=== PATIENT | male | born 1965 | race Caucasian/White ===

== ENCOUNTER 2016-09-19 11:43 | Inpatient (IN) | payer OTHER ==
[2016-09-19 17:44] VITALS: BMI 29.9
--- NOTE | 2016-09-19 18:31 | HP ---
CIWA Score - CIWA Score Nausea/Vomitin-Mild Nausea/No Vomiting Muscle Tremors: 4-Moderate,w/Arms Extend Anxiety: 3 Agitation: 4-Moderately Restless Paroxysmal Sweats: 1-Minimal Palms Moist Orientation: 1-Uncertain about Date Tacttile Disturbances: 0-None Auditory Disturbances: 2-Mild Harshness/Frighten Visual Disturbances: 0-None Headache: 3-Moderate CIWA-Ar Total Score: 19 Admission ROS BHS - HPI Chief Complaint: withdrawal sx Allergies/Adverse Reactions: Allergies Allergy/AdvReac Type Severity Reaction Status Date / Time No Known Allergies Allergy Verified 09/19/16 17:42 History of Present Illness: 50 years old male with long history of alcohol nicotine dependence, denies medical issue, has bijpolar ii, longest sobriety 5 months is admitted to detox Exam Limitations: No Limitations - Ebola screening Have you traveled outside of the country in the last 21 days: No Have you had contact with anyone from an Ebola affected area: No Have you been sick,other than usual withdrawal symptoms: No Do you have a fever: No - Review of Systems Constitutional: Chills, Changes in sleep, Weight Stable EENT: reports: No Symptoms Reported Respiratory: reports: No Symptoms reported Cardiac: reports: No Symptoms Reported GI: reports: Nausea, Poor Fluid Intake, Abdominal cramping : reports: No Symptoms Reported Musculoskeletal: reports: No Symptoms Reported Integumentary: reports: No Symptoms Reported Neuro: reports: Tremors Endocrine: reports: No Symptoms Reported Hematology: reports: No Symptoms Reported Psychiatric: reports: Judgement Intact, Anxious, Depressed Other Systems: Reviewed and Negative Patient History - Patient Medical History Hx Anemia: No Hx Asthma: No Hx Chronic Obstructive Pulmonary Disease (COPD): No Hx Cancer: No Hx Cardiac Disorders: No Hx Congestive Heart Failure: No Hx Hypertension: No Hx Hypercholesterolemia: No Hx Pacemaker: No HX Cerebrovascular Accident: No Hx Seizures: No Hx Dementia: No Hx Diabetes: No Hx Gastrointestinal Disorders: No Hx Liver Disease: No Hx Genitourinary Disorders: No Hx Sexually Transmitted Disorders: No Hx Renal Disease (ESRD): No Hx Thyroid Disease: No Hx Human Immunodeficiency Virus (HIV): No (last 05/21) Hx Hepatitis C: No Hx Depression: No Hx Suicide Attempt: Yes (jump off from roof a month ago) Hx Bipolar Disorder: Yes Hx Schizophrenia: No - Patient Surgical History Past Surgical History: No - PPD History Previous Implant?: Yes Documented Results: Negative w/o proof Implanted On Prior R Admission?: Yes Date: 07/18/16 PPD to be Administered?: Yes - Smoking Cessation Smoking history: Current every day smoker Have you smoked in the past 12 months: Yes Aproximately how many cigarettes per day: 20 Cigars Per Day: 0 Hx Chewing Tobacco Use: No Initiated information on smoking cessation: Yes 'Breaking Loose' booklet given: 09/19/16 - Substance & Tx. History Hx Alcohol Use: Yes Hx Substance Use: Yes Substance Use Type: Alcohol, Cocaine, Marijuana Hx Substance Use Treatment: Yes - Substances Abused Alcohol Route: Oral Frequency: Daily Amount used: 3 PINTS RUM Age of first use: 19 Date of Last Use: 09/18/16 Cocaine Route: Inhalation Frequency: Daily Amount used: $100 Age of first use: 19 Date of Last Use: 09/18/16 Marijuana/Hashish Route: Smoking Frequency: Daily Amount used: 3-4 BAGS Age of first use: 19 Date of Last Use: 09/16/16 Family Disease History - Family Disease History Family History: Denies Admission Physical Exam [facility] - Vital Signs Vital Signs: Vital Signs - 24 hr 09/19/16 17:41 Temperature 97.4 F L Pulse Rate 97 H Respiratory 20 Rate Blood Pressure 103/66 - Physical General Appearance: Yes: Appropriately Dressed, Moderate Distress, Tremorous, Irritable, Sweating, Anxious HEENTM: Yes: Hearing grossly Normal, Normal ENT Inspection, Normocephalic, Normal Voice Respiratory: Yes: Chest Non-Tender, Lungs Clear, Normal Breath Sounds, No Respiratory Distress, No Accessory Muscle Use Neck: Yes: Supple, Trachea in good position Breast: Yes: Breasts Symetrical Cardiology: Yes: Regular Rhythm, Regular Rate, S1, S2 Abdominal: Yes: Non Tender, Soft Genitourinary: Yes: Within Normal Limits Back: Yes: Normal Inspection Musculoskeletal: Yes: full range of Motion, Gait Steady Extremities: Yes: Normal Range of Motion, Non-Tender, Tremors Neurological: Yes: Alert, Motor Strength 5/5, Normal Response, Depressed Affect Integumentary: Yes: Warm, Clammy Lymphatic: Yes: Within Normal Limits - Diagnostic (1) Alcohol dependence with uncomplicated withdrawal Current Visit: Yes Status: Acute (2) Nicotine dependence Current Visit: Yes Status: Acute Qualifiers: Nicotine product type: cigarettes Substance use status: in withdrawal Qualified Code(s): F17.213 - Nicotine dependence, cigarettes, with withdrawal (3) Bipolar II disorder Current Visit: Yes Status: Suspected Comment: depradha (4) Dietary counseling Current Visit: Yes Status: Chronic Comment: eat beef and pork only Cleared for Admission S - Detox or Rehab [facility] Level of Care: Medically Managed Detox Regimen/Protocol: Librium S Breath Alcohol Content Breath Alcohol Content: 0 Urine Drug Screen - Results Drug Screen Negative: No Urine Drug Screen Results: THC-Marijuana, AMISHA-Cocaine
[2016-09-19] MEDS ORDERED: guaiFENesin/D-METHORPHAN HB 10 ML UNIT-DOSE CUPS PO PRN (18:32)
[2016-09-19] MEDS ORDERED: NICOTINE POLACRILEX 2 MG GUM BC PRN (18:32)
[2016-09-19] MEDS ORDERED: MENTHOL/PHENOL 1 EACH UD MM PRN (18:32)
[2016-09-19] MEDS ORDERED: chlordiazePOXIDE HCL 25 MG CAPSULE PO PRN (18:32)
[2016-09-19] MEDS ORDERED: MAG HYDROX/AL HYDROX/SIMETH 30 ML UNIT-DOSE CUP PO PRN (18:32)
[2016-09-19] MEDS ORDERED: diphenhydrAMINE HCL 50 MG CAPSULE PO PRN (18:32)
[2016-09-19] MEDS ORDERED: P-EPHED 60MG/TRIPROLIDI 2.5MG TABLET PO PRN (18:32)
[2016-09-19] MEDS ORDERED: MAGNESIUM CITRATE 300 ML BOTTLE PO PRN (18:32)
[2016-09-19] MEDS ORDERED: LOPERAMIDE HCL 2 MG CAPSULE PO PRN (18:32)
[2016-09-19] MEDS ORDERED: IBUPROFEN 400 MG TABLET (FP) PO PRN (18:32)
[2016-09-19] MEDS ORDERED: MAGNESIUM HYDROX 2400MG/30ML ORAL SUSPENSION 30 ML CUP PO PRN (18:32)
[2016-09-19] MEDS ORDERED: hydrOXYzine PAMOATE 50 MG CAPSULE (FP) PO PRN (18:32)
[2016-09-19] MEDS ORDERED: ACETAMINOPHEN 325 MG TABLET (FP) PO PRN (18:32)
[2016-09-19] MEDS ORDERED: chlordiazePOXIDE HCL 25 MG CAPSULE PO ONE (18:45)
[2016-09-19] MEDS: chlordiazePOXIDE HCL 25 MG CAPSULE PO SCH (22:46)
[2016-09-19] MEDS: THIAMINE HCL 100 MG TABLET (FP) PO SCH (22:47)
[2016-09-20] MEDS: chlordiazePOXIDE HCL 25 MG CAPSULE PO SCH ×4 (06:01→22:42)
[2016-09-20 10:07] LABS: MCH 30.2 pg (25.7-33.7); MCHC 33.4 g/dl (32.0-35.9); MEAN CELL VOLUME 90.5 fl (80-96); PLATELET COUNT 259 K/MM3 (134-434); RDW 12.9 % (11.9-15.9); WHITE BLOOD COUNT 6.1 K/mm3 (4.0-10.0)
[2016-09-20] MEDS: PRENATAL VITAMINS W/ FOLIC ACID TABLET (FP) PO SCH (10:30)
[2016-09-20] MEDS: NICOTINE 21 MG/24 HOURS TOPICAL PATCH TD SCH (10:30)
[2016-09-20 10:46] LABS: ALBUMIN 4.1 g/dl (3.4-5.0); ALK PHOS 70 U/L (45-117); ANION GAP 10 (8-16); BILIRUBIN,TOTAL 0.9 mg/dL (0.2-1.0); CALCIUM 8.8 mg/dL (8.5-10.1); CO2 26 mmol/L (21-32); CREATININE 1.1 mg/dL (0.7-1.3); GLUCOSE,RANDOM 105 mg/dL (74-106); SGOT/AST 26 U/L (15-37); SGPT/ALT 26 U/L (12-78); TOT PROT 7.3 g/dl (6.4-8.2)
--- NOTE | 2016-09-20 10:58 | PN ---
[facility] CIWA - CIWA Score Nausea/Vomitin-No Nausea/No Vomiting Muscle Tremors: 4-Moderate,w/Arms Extend Anxiety: 4-Mod. Anxious/Guarded Agitation: 4-Moderately Restless Paroxysmal Sweats: 1-Minimal Palms Moist Orientation: 0-Oriented Tacttile Disturbances: 3-Moderate Itch/Numb/Burn Auditory Disturbances: 0-None Visual Disturbances: 0-None Headache: 0-None Present CIWA-Ar Total Score: 16 BHS Progress Note (SOAP) Subjective: ANXIETY,SWEATS,FATIGUE. Objective: 09/20/16 10:57 Vital Signs Temperature 97.4 F L 09/20/16 10:10 Pulse Rate 106 H 09/20/16 10:10 Respiratory Rate 18 09/20/16 10:10 Blood Pressure 107/75 09/20/16 10:10 O2 Sat by Pulse Oximetry (%) Laboratory Last Values WBC 6.1 K/mm3 (4.0-10.0) D 09/20/16 06:00 RBC 4.54 M/mm3 (4.00-5.60) 09/20/16 06:00 Hgb 13.7 GM/dL (11.7-16.9) 09/20/16 06:00 Hct 41.1 % (35.4-49) 09/20/16 06:00 MCV 90.5 fl (80-96) 09/20/16 06:00 MCHC 33.4 g/dl (32.0-35.9) 09/20/16 06:00 RDW 12.9 % (11.9-15.9) 09/20/16 06:00 Plt Count 259 K/MM3 (134-434) 09/20/16 06:00 MPV 7.0 fl (7.5-11.1) L 09/20/16 06:00 Sodium 140 mmol/L (136-145) 09/20/16 06:00 Potassium 4.5 mmol/L (3.5-5.1) 09/20/16 06:00 Chloride 104 mmol/L (98-107) 09/20/16 06:00 Carbon Dioxide 26 mmol/L (21-32) 09/20/16 06:00 Anion Gap 10 (8-16) 09/20/16 06:00 BUN 19 mg/dL (7-18) H D 09/20/16 06:00 Creatinine 1.1 mg/dL (0.7-1.3) 09/20/16 06:00 Creat Clearance w eGFR > 60 (>60) 09/20/16 06:00 Random Glucose 105 mg/dL (74-106) 09/20/16 06:00 Calcium 8.8 mg/dL (8.5-10.1) 09/20/16 06:00 Total Bilirubin 0.9 mg/dL (0.2-1.0) D 09/20/16 06:00 AST 26 U/L (15-37) D 09/20/16 06:00 ALT 26 U/L (12-78) 09/20/16 06:00 Alkaline Phosphatase 70 U/L (45-117) 09/20/16 06:00 Total Protein 7.3 g/dl (6.4-8.2) 09/20/16 06:00 Albumin 4.1 g/dl (3.4-5.0) 09/20/16 06:00 Assessment: 09/20/16 10:58 WITHDRAWAL SX Plan: CONTINUE DETOX
--- NOTE | 2016-09-20 12:27 | EKG ---
Test Reason : Blood Pressure : / mmHG Vent. Rate : 082 BPM Atrial Rate : 082 BPM P-R Int : 122 ms QRS Dur : 086 ms QT Int : 400 ms P-R-T Axes : 070 054 051 degrees QTc Int : 467 ms NORMAL SINUS RHYTHM NORMAL ECG NO PREVIOUS ECGS AVAILABLE Confirmed by ECTOR AARON, VIKTOR ([id number]) on 09/20/2016 12:27:49 PM Referred By: Confirmed By:VIKTOR BARNEY MD
--- NOTE | 2016-09-20 14:00 | CONSULT ---
[facility] Psychiatric Consult - Data Date of interview: 09/20/16 Admission source: [facility] Identifying data: Readmission to [facility] for this 50 y/o male seeking detox treatment on for alcohol,cocaine and marijuana dependence.Patient is single without children,homeless,unemployed and supported on welfare. Substance Abuse History: - Smoking Cessation. Smoking history: Current every day smoker. Have you smoked in the past 12 months: Yes. Aproximately how many cigarettes per day: 20. Cigars Per Day: 0. Hx Chewing Tobacco Use: No. Initiated information on smoking cessation: Yes. 'Breaking Loose' booklet given : 09/19/16. - Substance & Tx. History. Hx Alcohol Use: Yes. Hx Substance Use : Yes. Substance Use Type: Alcohol, Cocaine, Marijuana. Hx Substance Use Treatment: Yes. - Substances Abused. Alcohol. Route: Oral. Frequency: Daily. Amount used: 3 PINTS RUM. Age of first use: 19. Date of Last Use: . Cocaine. Route: Inhalation. Frequency: Daily. Amount used: $100. Age of first use: 19. Date of Last Use: 09/18/16. Marijuana/Hashish. Route : Smoking. Frequency: Daily. Amount used: 3-4 BAGS. Age of first use: 19. Date of Last Use: 09/16/16. Confirmed by patient. Medical History: Patient endorses good general health. Psychiatric History: Patient admits to a history of two psychiatric hospitalizations at [facility] (2016 + 2017).Diagnosed with Bipolar Disorder.Medication : seroquel 150 mg/hs.Mr Frazier indicates that he did not follow through with recommendations for aftercare.He is now willing to resume his medication.Recent history of suicidal ideation with intent to jump off a roof (did not act on his impulses and sought voluntary hospitalization).Patient reports chronic insomnia. Physical/Sexual Abuse/Trauma History: Patient denies. Additional Comment: Urine Drug Screen Results: THC-Marijuana, AMISHA-Cocaine.Noted. Mental Status Exam - Mental Status Exam Alert and Oriented to: Time, Place, Person Cognitive Function: Good Patient Appearance: Well Groomed Mood: Withdrawn, Anxious Affect: Mood Congruent Patient Behavior: Fatigued, Appropriate, Cooperative Speech Pattern: Clear Voice Loudness: Normal Thought Process: Intact, Goal Oriented Thought Disorder: Not Present Hallucinations: Denies Suicidal Ideation: Denies Homicidal Ideation: Denies Insight/Judgement: Poor Sleep: Poorly, Difficulty falling asleep Appetite: Good Muscle strength/Tone: Normal Gait/Station: Normal Psychiatric Findings - Problem List ([place] 1, 2,3) (1) Alcohol dependence with uncomplicated withdrawal Current Visit: Yes Status: Acute (2) Nicotine dependence Current Visit: Yes Status: Acute Qualifiers: Nicotine product type: cigarettes Substance use status: in withdrawal Qualified Code(s): F17.213 - Nicotine dependence, cigarettes, with withdrawal (3) Cannabis dependence Current Visit: Yes Status: Acute (4) Cocaine dependence Current Visit: Yes Status: Acute Qualifiers: Substance use status: uncomplicated Qualified Code(s): F14.20 - Cocaine dependence, uncomplicated (5) Bipolar II disorder Current Visit: Yes Status: Suspected Comment: depakote (6) Substance induced mood disorder Current Visit: Yes Status: Acute - Initial Treatment Plan Initial Treatment Plan: Psychoeducation.Detoxification in progress.Seroquel 150 mg po hs.Side effects/benefits discussed with the patient.He agrees with this plan of care.Observation.
[2016-09-20 14:48] LABS: URINE APPEARANCE CLEAR; URINE BILIRUBIN NEGATIVE (NEGATIVE); URINE BLOOD NEGATIVE (NEGATIVE); URINE COLOR YELLOW; URINE GLUCOSE (UA) NEGATIVE (NEGATIVE); URINE KETONE NEGATIVE (NEGATIVE); URINE LEUK ESTERASE NEGATIVE (NEGATIVE); URINE NITRITE NEGATIVE (NEGATIVE); URINE PROTEIN NEGATIVE (NEGATIVE); URINE UROBILINOGEN NEGATIVE E.U./dl (0.2-1.0)
[2016-09-20] MEDS: THIAMINE HCL 100 MG TABLET (FP) PO SCH (22:42)
[2016-09-20] MEDS: QUEtiapine FUMARATE 50 MG TABLET PO SCH (22:42)
[2016-09-21] MEDS: chlordiazePOXIDE HCL 25 MG CAPSULE PO SCH ×3 (05:38→17:31)
[2016-09-21] MEDS: NICOTINE 21 MG/24 HOURS TOPICAL PATCH TD SCH (10:31)
[2016-09-21] MEDS: PRENATAL VITAMINS W/ FOLIC ACID TABLET (FP) PO SCH (10:31)
--- NOTE | 2016-09-21 12:25 | PN ---
[facility] CIWA - CIWA Score Nausea/Vomitin-No Nausea/No Vomiting Muscle Tremors: 4-Moderate,w/Arms Extend Anxiety: 4-Mod. Anxious/Guarded Agitation: 4-Moderately Restless Paroxysmal Sweats: 1-Minimal Palms Moist Orientation: 0-Oriented Tacttile Disturbances: 3-Moderate Itch/Numb/Burn Auditory Disturbances: 0-None Visual Disturbances: 0-None Headache: 0-None Present CIWA-Ar Total Score: 16 BHS Progress Note (SOAP) Subjective: ANXIETY,SWEATS,INTERMITTENT SLEEP. Objective: 09/21/16 12:24 Vital Signs Temperature 98.4 F 09/21/16 09:53 Pulse Rate 91 H 09/21/16 09:53 Respiratory Rate 20 09/21/16 09:53 Blood Pressure 112/78 09/21/16 09:53 O2 Sat by Pulse Oximetry (%) Laboratory Last Values WBC 6.1 K/mm3 (4.0-10.0) D 09/20/16 06:00 RBC 4.54 M/mm3 (4.00-5.60) 09/20/16 06:00 Hgb 13.7 GM/dL (11.7-16.9) 09/20/16 06:00 Hct 41.1 % (35.4-49) 09/20/16 06:00 MCV 90.5 fl (80-96) 09/20/16 06:00 MCHC 33.4 g/dl (32.0-35.9) 09/20/16 06:00 RDW 12.9 % (11.9-15.9) 09/20/16 06:00 Plt Count 259 K/MM3 (134-434) 09/20/16 06:00 MPV 7.0 fl (7.5-11.1) L 09/20/16 06:00 Sodium 140 mmol/L (136-145) 09/20/16 06:00 Potassium 4.5 mmol/L (3.5-5.1) 09/20/16 06:00 Chloride 104 mmol/L (98-107) 09/20/16 06:00 Carbon Dioxide 26 mmol/L (21-32) 09/20/16 06:00 Anion Gap 10 (8-16) 09/20/16 06:00 BUN 19 mg/dL (7-18) H D 09/20/16 06:00 Creatinine 1.1 mg/dL (0.7-1.3) 09/20/16 06:00 Creat Clearance w eGFR > 60 (>60) 09/20/16 06:00 Random Glucose 105 mg/dL (74-106) 09/20/16 06:00 Calcium 8.8 mg/dL (8.5-10.1) 09/20/16 06:00 Total Bilirubin 0.9 mg/dL (0.2-1.0) D 09/20/16 06:00 AST 26 U/L (15-37) D 09/20/16 06:00 ALT 26 U/L (12-78) 09/20/16 06:00 Alkaline Phosphatase 70 U/L (45-117) 09/20/16 06:00 Total Protein 7.3 g/dl (6.4-8.2) 09/20/16 06:00 Albumin 4.1 g/dl (3.4-5.0) 09/20/16 06:00 Urine Color Yellow 09/20/16 12:20 Urine Appearance Clear 09/20/16 12:20 Urine pH 6.0 (5.0-8.0) 09/20/16 12:20 Ur Specific [place] 1.025 (1.001-1.035) 09/20/16 12:20 Urine Protein Negative (NEGATIVE) 09/20/16 12:20 Urine Glucose (UA) Negative (NEGATIVE) 09/20/16 12:20 Urine Ketones Negative (NEGATIVE) 09/20/16 12:20 Urine Blood Negative (NEGATIVE) 09/20/16 12:20 Urine Nitrite Negative (NEGATIVE) 09/20/16 12:20 Urine Bilirubin Negative (NEGATIVE) 09/20/16 12:20 Urine Urobilinogen Negative E.U./dl (0.2-1.0) 09/20/16 12:20 Ur Leukocyte Esterase Negative (NEGATIVE) 09/20/16 12:20 RPR Titer Nonreactive (NONREACTIVE) 09/20/16 06:00 Assessment: 09/21/16 12:24 WITHDRAWAL SX Plan: CONTINUE DETOX
--- NOTE | 2016-09-21 19:41 | PN ---
BHS Progress Note Note: + ppd chest x ray continue detox
[2016-09-21] MEDS: QUEtiapine FUMARATE 50 MG TABLET PO SCH (22:38)
[2016-09-21] MEDS: chlordiazePOXIDE 5 MG CAPSULE PO SCH (22:39)
[2016-09-21] MEDS: THIAMINE HCL 100 MG TABLET (FP) PO SCH (22:39)
[2016-09-22] MEDS: chlordiazePOXIDE 5 MG CAPSULE PO SCH ×3 (05:57→17:36)
--- NOTE | 2016-09-22 10:23 | PN ---
BHS Progress Note (SOAP) Subjective: Sweating,interrupted sleep,restless Objective: 09/22/16 10:22 Vital Signs - 8 hr 09/22/16 09/22/16 09/22/16 03:35 06:27 09:36 Temperature 95.8 F L Pulse Rate 79 92 H Respiratory 18 18 20 Rate Blood Pressure 127/82 138/92 Laboratory Tests 09/20/16 09/20/16 09/20/16 06:00 06:00 06:00 WBC 6.1 D RBC 4.54 Hgb 13.7 Hct 41.1 MCV 90.5 MCHC 33.4 RDW 12.9 Plt Count 259 MPV 7.0 L Sodium 140 Potassium 4.5 Chloride 104 Carbon Dioxide 26 Anion Gap 10 BUN 19 H D Creatinine 1.1 Creat Clearance w eGFR > 60 Random Glucose 105 Calcium 8.8 Total Bilirubin 0.9 D AST 26 D ALT 26 Alkaline Phosphatase 70 Total Protein 7.3 Albumin 4.1 Urine Color Urine Appearance Urine pH Ur Specific [place] Urine Protein Urine Glucose (UA) Urine Ketones Urine Blood Urine Nitrite Urine Bilirubin Urine Urobilinogen Ur Leukocyte Esterase RPR Titer Nonreactive 09/20/16 12:20 WBC RBC Hgb Hct MCV MCHC RDW Plt Count MPV Sodium Potassium Chloride Carbon Dioxide Anion Gap BUN Creatinine Creat Clearance w eGFR Random Glucose Calcium Total Bilirubin AST ALT Alkaline Phosphatase Total Protein Albumin Urine Color Yellow Urine Appearance Clear Urine pH 6.0 Ur Specific [place] 1.025 Urine Protein Negative Urine Glucose (UA) Negative Urine Ketones Negative Urine Blood Negative Urine Nitrite Negative Urine Bilirubin Negative Urine Urobilinogen Negative Ur Leukocyte Esterase Negative RPR Titer labs noted Assessment: 09/22/16 10:23 withdrawal sx. Plan: continue detox
[2016-09-22] MEDS: PRENATAL VITAMINS W/ FOLIC ACID TABLET (FP) PO SCH (10:30)
[2016-09-22] MEDS: NICOTINE 21 MG/24 HOURS TOPICAL PATCH TD SCH (10:30)
[2016-09-22] MEDS: QUEtiapine FUMARATE 50 MG TABLET PO SCH (22:41)
[2016-09-22] MEDS: THIAMINE HCL 100 MG TABLET (FP) PO SCH (22:41)
[2016-09-22] MEDS: chlordiazePOXIDE HCL 10 MG CAPSULE PO SCH (22:41)
[2016-09-23] MEDS: chlordiazePOXIDE HCL 10 MG CAPSULE PO SCH ×2 (05:45→10:35)
[2016-09-23 06:25] VITALS: BP 121/85; PULSE 89; TEMP 96.1
[2016-09-23] MEDS: PRENATAL VITAMINS W/ FOLIC ACID TABLET (FP) PO SCH (10:35)
[2016-09-23] MEDS: NICOTINE 21 MG/24 HOURS TOPICAL PATCH TD SCH (10:36)
--- NOTE | 2016-09-23 15:22 | DS ---
[facility] Detox Discharge Summary Admission Date: 09/19/16 Discharge Date: 09/23/16 - History Present History: Alcohol Dependence, Cannabis Dependence, Cocaine Dependence Additional Comments: ADVISED PT. TO FOLLOW-UP WITH ECONOMIC RESEARCH ASSISTANT AFTER DISCHARGE FROM DETOX FOR GENERAL MEDICAL ASSESSMENT. Pertinent Past History: Bi-Polar disorder. - Physical Exam Results Vital Signs: Vital Signs Temperature 96.1 F L 09/23/16 06:25 Pulse Rate 89 09/23/16 06:25 Respiratory Rate 18 09/23/16 06:25 Blood Pressure 121/85 09/23/16 06:25 O2 Sat by Pulse Oximetry (%) Pertinent Admission Physical Exam Findings: Withdrawal Symptoms. Laboratory Last Values WBC 6.1 K/mm3 (4.0-10.0) D 09/20/16 06:00 RBC 4.54 M/mm3 (4.00-5.60) 09/20/16 06:00 Hgb 13.7 GM/dL (11.7-16.9) 09/20/16 06:00 Hct 41.1 % (35.4-49) 09/20/16 06:00 MCV 90.5 fl (80-96) 09/20/16 06:00 MCHC 33.4 g/dl (32.0-35.9) 09/20/16 06:00 RDW 12.9 % (11.9-15.9) 09/20/16 06:00 Plt Count 259 K/MM3 (134-434) 09/20/16 06:00 MPV 7.0 fl (7.5-11.1) L 09/20/16 06:00 Sodium 140 mmol/L (136-145) 09/20/16 06:00 Potassium 4.5 mmol/L (3.5-5.1) 09/20/16 06:00 Chloride 104 mmol/L (98-107) 09/20/16 06:00 Carbon Dioxide 26 mmol/L (21-32) 09/20/16 06:00 Anion Gap 10 (8-16) 09/20/16 06:00 BUN 19 mg/dL (7-18) H D 09/20/16 06:00 Creatinine 1.1 mg/dL (0.7-1.3) 09/20/16 06:00 Creat Clearance w eGFR > 60 (>60) 09/20/16 06:00 Random Glucose 105 mg/dL (74-106) 09/20/16 06:00 Calcium 8.8 mg/dL (8.5-10.1) 09/20/16 06:00 Total Bilirubin 0.9 mg/dL (0.2-1.0) D 09/20/16 06:00 AST 26 U/L (15-37) D 09/20/16 06:00 ALT 26 U/L (12-78) 09/20/16 06:00 Alkaline Phosphatase 70 U/L (45-117) 09/20/16 06:00 Total Protein 7.3 g/dl (6.4-8.2) 09/20/16 06:00 Albumin 4.1 g/dl (3.4-5.0) 09/20/16 06:00 Urine Color Yellow 09/20/16 12:20 Urine Appearance Clear 09/20/16 12:20 Urine pH 6.0 (5.0-8.0) 09/20/16 12:20 Ur Specific [place] 1.025 (1.001-1.035) 09/20/16 12:20 Urine Protein Negative (NEGATIVE) 09/20/16 12:20 Urine Glucose (UA) Negative (NEGATIVE) 09/20/16 12:20 Urine Ketones Negative (NEGATIVE) 09/20/16 12:20 Urine Blood Negative (NEGATIVE) 09/20/16 12:20 Urine Nitrite Negative (NEGATIVE) 09/20/16 12:20 Urine Bilirubin Negative (NEGATIVE) 09/20/16 12:20 Urine Urobilinogen Negative E.U./dl (0.2-1.0) 09/20/16 12:20 Ur Leukocyte Esterase Negative (NEGATIVE) 09/20/16 12:20 RPR Titer Nonreactive (NONREACTIVE) 09/20/16 06:00 LABS NOTED. - Treatment Hospital Course: Detox Protocol Followed, Detoxed Safely, Responded well, Discharged Condition Good, Rehab Referral Accepted Patient has Accepted a Rehab Referral to: YES. - Medication Discharge Medications: Ambulatory Orders Quetiapine Fumarate [Seroquel -] 150 mg PO HS 09/19/16 Quetiapine Fumarate [Seroquel -] 150 mg PO HS #60 tablet 09/20/16 - Diagnosis (1) Alcohol dependence with uncomplicated withdrawal Status: Acute (2) Cannabis dependence Status: Acute (3) Cocaine dependence Status: Acute Qualifiers: Substance use status: uncomplicated Qualified Code(s): F14.20 - Cocaine dependence, uncomplicated (4) Nicotine dependence Status: Chronic Qualifiers: Nicotine product type: cigarettes Substance use status: in withdrawal Qualified Code(s): F17.213 - Nicotine dependence, cigarettes, with withdrawal (5) PPD positive, treated Status: Chronic (6) Bipolar II disorder Status: Suspected - AMA Did Patient Leave Against Medical Advice: No
== END 2016-09-23 10:50 | disposition other institution (70) | DRG 774 ==
LOC: YASAS 11:43 → Y3N 17:51
PROVIDERS: ADMIT Internal Medicine; ATTEND Internal Medicine
PROC: HZ2ZZZZ Detoxification Services for Substance Abuse Treatment (ICD-10-PCS; principal; 2016-09-23)
DX: F10.230 Alcohol dependence with withdrawal, uncomplicated (principal); F14.20 Cocaine dependence, uncomplicated; F12.20 Cannabis dependence, uncomplicated; F17.213 Nicotine dependence, cigarettes, with withdrawal; F19.24 Other psychoactive substance dependence with psychoactive substance-induced mood disorder; F31.81 Bipolar II disorder; R76.11 Nonspecific reaction to tuberculin skin test without active tuberculosis; Z71.3 Dietary counseling and surveillance; Z59.0 Homelessness; Z68.30 Body mass index [BMI] 30.0-30.9, adult
CPT/HCPCS: 36415; 71020-TC; 80053; 81003; 85027; 86593; 93005; 93010

== ENCOUNTER 2016-09-23 11:34 | Inpatient (IN) | payer OTHER ==
[2016-09-23 14:02] VITALS: BMI 31.2
[2016-09-23] MEDS ORDERED: NICOTINE POLACRILEX 2 MG GUM BUC PRN (16:49)
[2016-09-23] MEDS ORDERED: MAG HYDROX/AL HYDROX/SIMETH 30 ML UNIT-DOSE CUP PO PRN (16:49)
[2016-09-23] MEDS ORDERED: IBUPROFEN 400 MG TABLET (FP) PO PRN (16:49)
[2016-09-23] MEDS ORDERED: ACETAMINOPHEN 325 MG TABLET (FP) PO PRN (16:49)
[2016-09-23] MEDS ORDERED: diphenhydrAMINE HCL 50 MG CAPSULE PO PRN (16:49)
[2016-09-23] MEDS ORDERED: MAGNESIUM CITRATE 300 ML BOTTLE PO PRN (16:49)
[2016-09-23] MEDS ORDERED: MENTHOL/PHENOL 1 EACH UD MM PRN (16:49)
[2016-09-23] MEDS ORDERED: hydrOXYzine PAMOATE 50 MG CAPSULE (FP) PO PRN (16:49)
[2016-09-23] MEDS ORDERED: LOPERAMIDE HCL 2 MG CAPSULE PO PRN (16:49)
[2016-09-23] MEDS ORDERED: P-EPHED 60MG/TRIPROLIDI 2.5MG TABLET PO PRN (16:49)
[2016-09-23] MEDS ORDERED: guaiFENesin/D-METHORPHAN HB 10 ML UNIT-DOSE CUPS PO PRN (16:49)
[2016-09-23] MEDS ORDERED: MAGNESIUM HYDROX 2400MG/30ML ORAL SUSPENSION 30 ML CUP PO PRN (16:49)
--- NOTE | 2016-09-23 16:53 | HP ---
[facility] Rehab Assess/Revision - Admission History Admitted to Rehab from: [facility] Date of Admission to Rehab: 09/23/16 - Vital signs Vital Signs: Vital Signs Period Temp Pulse Resp BP Sys/Urias Pulse Ox Last 24 Hr 97.4 F 99 20 135/71 - Findings Detox History & Physical reviewed: Yes Concur with findings: Yes Comments/Additional Findings: FOR REHAB PROTOCOL
[2016-09-23] MEDS: THIAMINE HCL 100 MG TABLET (FP) PO SCH (21:28)
[2016-09-23] MEDS ORDERED: QUEtiapine FUMARATE 100 MG TABLET (FP) PO SCH ×2 (22:00)
[2016-09-24] MEDS: PRENATAL VITAMINS W/ FOLIC ACID TABLET (FP) PO SCH (10:08)
[2016-09-24 13:08] LABS: HIV 1 & 2 AB NEGATIVE; HIV 1 AGp24 NEGATIVE
[2016-09-24] MEDS: THIAMINE HCL 100 MG TABLET (FP) PO SCH (21:40)
[2016-09-24] MEDS: QUEtiapine FUMARATE 50 MG TABLET PO SCH (21:40)
[2016-09-25] MEDS ORDERED: INFLUENZA VACCINE 45 MCG/0.5 ML (MDV 16-17) IM ONE (07:02)
--- NOTE | 2016-09-25 07:50 | HP ---
Psychiatrist Admission - Data Date of interview: 09/25/16 Admission source: [facility] Identifying data: This is the first [facility] admission for this 50 years old single male, unemployed receiving food stamp, homeless seeking detox treatment for alcohol, cocaine and marijuana Medical History: Reports that he used to take medication for hypertension. He claims he stopped due to homelessness Psychiatric History: Patient reports that he started seeing psychiatrist as a child. Claims that he was diagnosed with Bipolsr Disorder and depression. Reports multiple psychiatric hospitalizations. He is known to [facility], [facility], [facility]. Reports most recent admission was to [facility] in August 2016. He was discharged on Seroquel 150 mg po HS. Told policy writer typist that he did not comply with referral for aftercare. He saw Dr Sheikh while in detox and was continued on Seroquel 150 mg po HS. Reports history of suicidal ideations but denies real attempt. At present, reports feeling depressed and experiencing difficulty to sleep Physical/Sexual Abuse/Trauma History: Denies history of physical, sexual abuse as well as DV relationship Additional Comment: No criminal history Vital Signs: Vital Signs - 24 hr 09/25/16 09/25/16 00:30 06:25 Temperature 97.3 F L Pulse Rate 105 H Respiratory 20 18 Rate Blood Pressure 130/88 Allergies/Adverse Reactions: Allergies Allergy/AdvReac Type Severity Reaction Status Date / Time No Known Allergies Allergy Verified 09/19/16 17:42 Date of last physical exam: 09/19/16 Concur with the findings of this exam: Yes - Substance Abuse/Tx History Hx Alcohol Use: Yes Hx Substance Use: Yes Substance Use Type: Alcohol (Started drinking alcohol at age 19, consumes 3 pints of rum daily. Last drink on 09/18/16), Cocaine (Started using cocaine at age 19, consumes $100 worth daily. Last used on 09/18/16), Marijuana (Started smoking marijuana at age 19, consumes 3-4 bags daily. Last smoked on 09/16/16) Hx Substance Use Treatment: Yes (2 previous inpt detox @ [facility]. First inpt rehab) - Admission Criteria Previous failed treatment: Yes Poor recovery environment: Yes Comorbidities: Yes Lacks judgement: Yes Mental Status Exam - Mental Status Exam Alert and Oriented to: Time (He said that today is Sunday or WedAugust 24, 2016), Place, Person Cognitive Function: Grossly Intact Patient Appearance: Well Groomed Mood: Depressed (I have no life, no place to go after leaving from here) Affect: Appropriate Patient Behavior: Cooperative Speech Pattern: Clear Voice Loudness: Normal Thought Process: Intact Thought Disorder: Not Present Hallucinations: Denies (I always here voices but I'm not hearing voices today) Suicidal Ideation: Denies, Past, Plan Homicidal Ideation: Denies Insight/Judgement: Fair Sleep: Poorly Appetite: Good Muscle strength/Tone: Normal Gait/Station: Normal Psychiatric Findings - Problem List ([place] 1, 2,3) (1) Alcohol dependence with uncomplicated withdrawal Current Visit: No Status: Acute (2) Cocaine dependence Current Visit: No Status: Acute Qualifiers: Substance use status: uncomplicated Qualified Code(s): F14.20 - Cocaine dependence, uncomplicated (3) Cannabis dependence Current Visit: No Status: Acute (4) Nicotine dependence Current Visit: No Status: Chronic Qualifiers: Nicotine product type: cigarettes Substance use status: in withdrawal Qualified Code(s): F17.213 - Nicotine dependence, cigarettes, with withdrawal (5) Bipolar II disorder Current Visit: No Status: Suspected Comment: depakote - Initial Treatment Plan Initial Treatment Plan: 1) Continue Seroquel 150 mg po HS. 2) Monitor progress
[2016-09-25] MEDS: PRENATAL VITAMINS W/ FOLIC ACID TABLET (FP) PO SCH (10:03)
[2016-09-25] MEDS: QUEtiapine FUMARATE 50 MG TABLET PO SCH (21:54)
[2016-09-25] MEDS: THIAMINE HCL 100 MG TABLET (FP) PO SCH (21:54)
[2016-09-26] MEDS: PRENATAL VITAMINS W/ FOLIC ACID TABLET (FP) PO SCH (10:12)
[2016-09-26] MEDS: THIAMINE HCL 100 MG TABLET (FP) PO SCH (21:06)
[2016-09-26] MEDS: QUEtiapine FUMARATE 50 MG TABLET PO SCH (21:06)
[2016-09-27 06:45] VITALS: BP 129/86; PULSE 100; TEMP 97.5
[2016-09-27] MEDS: PRENATAL VITAMINS W/ FOLIC ACID TABLET (FP) PO SCH (09:51)
[2016-09-27] MEDS: THIAMINE HCL 100 MG TABLET (FP) PO SCH (21:33)
[2016-09-27] MEDS: QUEtiapine FUMARATE 50 MG TABLET PO SCH (21:33)
[2016-09-28] MEDS: PRENATAL VITAMINS W/ FOLIC ACID TABLET (FP) PO SCH (10:40)
--- NOTE | 2016-09-28 12:41 | PN ---
[facility] Progress Note Note: Graffiti Cleaner received a call from nursing staff regarding patient who decided to leave against medical advice. Graffiti Cleaner asked for patient to wait for him since he was seeing a different patient on another unit. Graffiti Cleaner was told that patient did not want to stay. According to nurse's note, he decide to leave to go make money to buy a plane ticket to [place]. He was stable on discharge as per nurse's note
== END 2016-09-28 11:30 | disposition left against medical advice (07) | DRG 770 ==
LOC: YASAS 11:34 → Y3W 11:35
PROVIDERS: ADMIT Psychiatry & Neurology Psychiatry; ATTEND Psychiatry & Neurology Psychiatry
PROC: HZ42ZZZ Group Counseling for Substance Abuse Treatment, Cognitive-Behavioral (ICD-10-PCS; principal; 2016-09-23)
DX: F10.20 Alcohol dependence, uncomplicated (principal); F14.20 Cocaine dependence, uncomplicated; F12.20 Cannabis dependence, uncomplicated; F17.210 Nicotine dependence, cigarettes, uncomplicated; F31.81 Bipolar II disorder; Z59.0 Homelessness
CPT/HCPCS: 36415; 87389